=== PATIENT | female | born 1955 | race Caucasian/White ===

== ENCOUNTER 2020-08-08 14:27 | Emergency (ER) | payer MEDICARE, OTHER | END 2020-08-08 18:37 | disposition home or self-care (01) | LOC: FER 14:27 | DX: K59.00 Constipation, unspecified (principal); I25.2 Old myocardial infarction; I10 Essential (primary) hypertension; E78.5 Hyperlipidemia, unspecified; J44.9 Chronic obstructive pulmonary disease, unspecified; Z87.19 Personal history of other diseases of the digestive system; Z90.49 Acquired absence of other specified parts of digestive tract; Z98.890 Other specified postprocedural states; Z88.8 Allergy status to other drugs, medicaments and biological substances; Z88.6 Allergy status to analgesic agent; Z88.5 Allergy status to narcotic agent; Z87.891 Personal history of nicotine dependence; Z91.041 Radiographic dye allergy status; Z86.14 Personal history of Methicillin resistant Staphylococcus aureus infection | CPT/HCPCS: 36415; 78452; 80053; 81003; 82150; 83605; 83690; 85025; 93017; A9500; J1170; J2405; J2785; J7030 ==

== ENCOUNTER 2020-09-03 21:10 | Emergency (ER) | payer OTHER | END 2020-09-03 23:56 | disposition home or self-care (01) | LOC: FER 21:10 | DX: T81.31XA Disruption of external operation (surgical) wound, not elsewhere classified, initial encounter (principal); I25.2 Old myocardial infarction; J44.9 Chronic obstructive pulmonary disease, unspecified; Z86.73 Personal history of transient ischemic attack (TIA), and cerebral infarction without residual deficits; Z88.1 Allergy status to other antibiotic agents; Z98.890 Other specified postprocedural states | CPT/HCPCS: 99283 ==